=== PATIENT | female | born 1970 | race Caucasian/White ===

== ENCOUNTER → 2021-01-02 | Outpatient (CLI) | payer OTHER ==
[~2021-01-02] MED LIST: DULOXETINE HCL60 MG PO; ESCITALOPRAM OX10 MG PO; EUTHYROX25 MCG PO; EUTHYROX50 MCG PO; GLUCOPHAGE 500500 MG PO; LISINOPRIL-HCT1 EACH PO; OMEPRAZOLE40 MG PO; PIOGLITAZONE HC30 MG PO; VITAMIN D21250 MCG PO; ZETIA 10 MG TAB10 MG PO
== END ==
LOC: KOH-I 12:02
DX: M47.26 Other spondylosis with radiculopathy, lumbar region (principal)
CPT/HCPCS: 72100

== ENCOUNTER → 2021-01-12 | Outpatient (CLI) | payer OTHER | LOC: KOH-I 15:00 | DX: M51.16 Intervertebral disc disorders with radiculopathy, lumbar region (principal); R93.7 Abnormal findings on diagnostic imaging of other parts of musculoskeletal system; M51.37 Other intervertebral disc degeneration, lumbosacral region; M48.07 Spinal stenosis, lumbosacral region; M48.061 Spinal stenosis, lumbar region without neurogenic claudication | CPT/HCPCS: 72148 ==

== ENCOUNTER → 2021-03-20 | Outpatient (CLI) | payer OTHER ==
[2021-03-20 09:39] LABS: HEMOGLOBIN 13.7 gm/dl (12.3-15.3); RED BLOOD COUNT 5.05 M/UL (4.00-5.10); WHITE BLOOD COUNT 10.2 K/UL (4.5-11.0)
[2021-03-20 10:07] LABS: BUN/CREATININE RATIO 13 (0-10)
== END ==
LOC: LAB 09:15
PROVIDERS: Internal Medicine
DX: E11.9 Type 2 diabetes mellitus without complications (principal)
CPT/HCPCS: 36415; 80048; 80061; 80076; 83036; 84443; 85025

== ENCOUNTER → 2021-04-16 | Outpatient (CLI) | payer OTHER ==
[~2021-04-16] MED LIST changes: +DICLOFENAC; +ESCITALOPRAM OX20 MG PO; +METFORMIN HCL500 MG PO; +NORFLEX 100 MG100 MG PO
[2021-04-16 13:33] LABS: HEMOGLOBIN 12.9 gm/dl (12.3-15.3); RED BLOOD COUNT 4.76 M/UL (4.00-5.10); WHITE BLOOD COUNT 11.6 K/UL (4.5-11.0)
[2021-04-16 13:55] LABS: BUN/CREATININE RATIO 12 (0-10)
== END ==
LOC: OPSV2 12:24
PROVIDERS: Orthopaedic Surgery
DX: Z01.818 Encounter for other preprocedural examination (principal); M43.16 Spondylolisthesis, lumbar region; M48.061 Spinal stenosis, lumbar region without neurogenic claudication
CPT/HCPCS: 36415; 71046; 80048; 81001; 85027; 85610; 85730; 87081; 87086; 93005

== ENCOUNTER → 2021-04-26 | Outpatient (CLI) | payer OTHER ==
[~2021-04-26] MED LIST changes: -ZETIA 10 MG TAB10 MG PO; +ZETIA10 MG PO
[2021-04-26 21:09] LABS: BUN/CREATININE RATIO 15 (0-10)
== END ==
LOC: LAB 20:25
PROVIDERS: Orthopaedic Surgery
DX: Z01.812 Encounter for preprocedural laboratory examination (principal)
CPT/HCPCS: 80048; 86850; 86900; 86901

== ENCOUNTER 2021-04-27 05:27 | Inpatient (IN) | payer OTHER ==
[~2021-04-27] VITALS: Ht 160 cm; Wt 97.5 kg
[2021-04-27 14:08] LABS: HEMOGLOBIN 11.8 gm/dl (12.3-15.3); RED BLOOD COUNT 4.42 M/UL (4.00-5.10); WHITE BLOOD COUNT 11.6 K/UL (4.5-11.0)
[2021-04-27 14:22] LABS: BUN/CREATININE RATIO 14 (0-10)
[2021-04-28 03:02] LABS: HEMOGLOBIN 10.6 gm/dl (12.3-15.3); RED BLOOD COUNT 4.06 M/UL (4.00-5.10)
[2021-04-28 03:19] LABS: WHITE BLOOD COUNT 15.8 K/UL (4.5-11.0)
[2021-04-28 03:29] LABS: BUN/CREATININE RATIO 17 (0-10)
[2021-04-29 04:36] LABS: HEMOGLOBIN 10.4 gm/dl (12.3-15.3); RED BLOOD COUNT 3.88 M/UL (4.00-5.10)
[2021-04-29 04:39] LABS: WHITE BLOOD COUNT 10.8 K/UL (4.5-11.0)
[2021-04-29 04:54] LABS: BUN/CREATININE RATIO 11 (0-10)
[2021-04-30 04:06] LABS: HEMOGLOBIN 10.9 gm/dl (12.3-15.3); RED BLOOD COUNT 4.12 M/UL (4.00-5.10); WHITE BLOOD COUNT 9.7 K/UL (4.5-11.0)
[2021-04-30 04:52] LABS: BUN/CREATININE RATIO 15 (0-10)
[2021-04-30] MEDS ORDERED: KLOR-CON M2020 MEQ PO (10:04)
== END 2021-04-30 16:17 | disposition home or self-care (01) | DRG 455 ==
LOC: PROG CARE 05:27 → OR 05:27 → PROG CARE 05:28 → OR 07:30 → PROG CARE 15:41 → OR 17:30 → PROG CARE 04-30 16:17
PROVIDERS: Orthopaedic Surgery; ADMIT Internal Medicine
PROC: 01NB0ZZ Release Lumbar Nerve, Open Approach (ICD-10-PCS; 2021-04-27)
PROC: 4A11X4G Monitoring of Peripheral Nervous Electrical Activity, Intraoperative, External Approach (ICD-10-PCS; 2021-04-27)
PROC: 0SG00AJ Fusion of Lumbar Vertebral Joint with Interbody Fusion Device, Posterior Approach, Anterior Column, Open Approach (ICD-10-PCS; principal; 2021-04-27 07:30)
PROC: 0SG0071 Fusion of Lumbar Vertebral Joint with Autologous Tissue Substitute, Posterior Approach, Posterior Column, Open Approach (ICD-10-PCS; 2021-04-27 07:30)
DX: M43.16 Spondylolisthesis, lumbar region (principal); M54.16 Radiculopathy, lumbar region; M48.061 Spinal stenosis, lumbar region without neurogenic claudication; Z20.822 Contact with and (suspected) exposure to COVID-19; E87.6 Hypokalemia; I10 Essential (primary) hypertension; E78.5 Hyperlipidemia, unspecified; E03.9 Hypothyroidism, unspecified; F32.A Depression, unspecified; D50.0 Iron deficiency anemia secondary to blood loss (chronic); K21.9 Gastro-esophageal reflux disease without esophagitis; M79.7 Fibromyalgia; Z90.49 Acquired absence of other specified parts of digestive tract; E11.65 Type 2 diabetes mellitus with hyperglycemia; Z87.11 Personal history of peptic ulcer disease; Z86.59 Personal history of other mental and behavioral disorders; Z86.69 Personal history of other diseases of the nervous system and sense organs; Z79.4 Long term (current) use of insulin; Z80.9 Family history of malignant neoplasm, unspecified; Z82.49 Family history of ischemic heart disease and other diseases of the circulatory system; Z82.61 Family history of arthritis; Z83.49 Family history of other endocrine, nutritional and metabolic diseases; Z83.42 Family history of familial hypercholesterolemia
CPT/HCPCS: 36415; 72100; 72110; 76000; 80048; 82962; 84132; 85025; 85027; 94760; 97116-GP-CQ; 97161; 97166; 97530-GP-CQ; 97535; C1713; C1762; C1781; J0690; J1040; J1100; J1170; J1644; J2250; J2370; J2405; J2704; J3010; J3370; J7030; J7040; J7120

== ENCOUNTER → 2022-01-28 | Outpatient (CLI) | payer OTHER ==
[~2022-01-28] MED LIST changes: +KLOR-CON M2020 MEQ PO
== END ==
LOC: OPSV 01-27 09:00
DX: D64.9 Anemia, unspecified (principal)
CPT/HCPCS: 96365; J1756

== ENCOUNTER → 2022-02-04 | Outpatient (CLI) | payer OTHER | LOC: OPSV 07:40 | DX: D64.9 Anemia, unspecified (principal) | CPT/HCPCS: 96365; J1756 ==

== ENCOUNTER → 2022-02-11 | Outpatient (CLI) | payer OTHER ==
[~2022-02-11] VITALS: Ht 160 cm; Wt 92.5 kg
== END ==
LOC: OPSV 07:57
DX: D64.9 Anemia, unspecified (principal)
CPT/HCPCS: 96365; J1756

== ENCOUNTER → 2022-02-18 | Outpatient (CLI) | payer OTHER ==
[~2022-02-18] VITALS: Ht 160 cm; Wt 92.5 kg
== END ==
LOC: OPSV 07:45
DX: D64.9 Anemia, unspecified (principal)
CPT/HCPCS: 96365; J1756

== ENCOUNTER → 2022-02-23 | Outpatient (CLI) | payer OTHER | LOC: LAB 07:34 | DX: D64.9 Anemia, unspecified (principal); E78.5 Hyperlipidemia, unspecified | CPT/HCPCS: 36415; 80061; 80076; 83540; 83550 ==